=== PATIENT | male | born 1945 | race Two or more races ===

== ENCOUNTER → 2018-11-06 | Day surgery (SDC) | payer OTHER ==
[~2018-11-06] MED LIST: LIPITOR20 MG; PERCOCET 5-3251 EACH PO
== END | disposition home or self-care (01) ==
LOC: CIR.AMB 09:49 → ADM 11-13 10:30
DX: C20 Malignant neoplasm of rectum (principal)
CPT/HCPCS: 36561; C1751

== ENCOUNTER 2018-11-19 14:13 | Emergency (ER) | payer OTHER ==
[~2018-11-19] VITALS: Ht 172.7 cm; Wt 98.9 kg
== END 2018-11-19 21:47 | disposition home or self-care (01) ==
LOC: ER 14:13
DX: T82.7XXA Infection and inflammatory reaction due to other cardiac and vascular devices, implants and grafts, initial encounter (principal)

== ENCOUNTER 2018-11-21 14:30 | Inpatient (IN) | payer OTHER ==
[~2018-11-21] VITALS: Ht 172.7 cm; Wt 98.0 kg
[2018-11-21] MEDS ORDERED: PNEU16DI2 (14:59)
[2018-11-23] MEDS ORDERED: RANITIDINE HCL300 MG PO (14:36)
[2018-11-23] MEDS ORDERED: OMEPRAZOLE20 MG PO (14:36)
[2018-11-23] MEDS ORDERED: SIMVASTATIN40 MG PO (14:36)
== END 2018-11-28 15:20 | disposition home or self-care (01) | DRG 316 ==
LOC: ER 14:30 → MEDJ 18:51 → SEC-K 18:51 → MEDJ 11-22 01:34
PROVIDERS: Surgery; ADMIT Internal Medicine
PROC: 8E0ZXY6 Isolation (ICD-10-PCS; 2018-11-21)
PROC: 05H533Z Insertion of Infusion Device into Right Subclavian Vein, Percutaneous Approach (ICD-10-PCS; 2018-11-23)
PROC: 05PY33Z Removal of Infusion Device from Upper Vein, Percutaneous Approach (ICD-10-PCS; principal; 2018-11-23 10:45)
DX: T80.211A Bloodstream infection due to central venous catheter, initial encounter (principal); Z85.048 Personal history of other malignant neoplasm of rectum, rectosigmoid junction, and anus; B95.61 Methicillin susceptible Staphylococcus aureus infection as the cause of diseases classified elsewhere
CPT/HCPCS: 36590; 36561; C1751

== ENCOUNTER 2020-02-25 09:55 | Inpatient (IN) | payer OTHER ==
[~2020-02-25] VITALS: Ht 172.7 cm; Wt 102.1 kg
[~2020-02-25 09:55] MED LIST changes: +OMEPRAZOLE20 MG PO; +PNEU16DI2; +RANITIDINE HCL300 MG PO; +SIMVASTATIN40 MG PO
[2020-02-25] MEDS ORDERED: NEURONTIN300 MG PO (10:04)
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
--- NOTE | 2020-02-25 11:56 | NUR ---
SE LINDA MUESTRAS DE CHRISTY Y MUESTRA DE COVID 19 MOLECULAR CARMEN ORDEN MEDICA Y SE ADMINISTRAN MEDICAMENTOS ORDENADOS,.
== END 2020-02-29 15:30 | disposition home or self-care (01) | DRG 375 ==
LOC: ER 09:55 → SEC-K 18:29 → MEDJ 18:29
PROVIDERS: ADMIT Internal Medicine; ATTEND Internal Medicine
PROC: 0DBK8ZX Excision of Ascending Colon, Via Natural or Artificial Opening Endoscopic, Diagnostic (ICD-10-PCS; principal; 2020-02-28)
PROC: 0DBP8ZX Excision of Rectum, Via Natural or Artificial Opening Endoscopic, Diagnostic (ICD-10-PCS; 2020-02-28)
DX: C20 Malignant neoplasm of rectum (principal); T80.212A Local infection due to central venous catheter, initial encounter; K42.0 Umbilical hernia with obstruction, without gangrene; K63.5 Polyp of colon; K62.1 Rectal polyp; K57.30 Diverticulosis of large intestine without perforation or abscess without bleeding